=== PATIENT | male | born 1940 | race Caucasian/White ===

== ENCOUNTER 2018-01-15 16:29 | Emergency (ER) | payer MEDICARE, OTHER ==
[~2018-01-15] VITALS: Ht 162.6 cm; Wt 81.0 kg
[~2018-01-15 16:29] MED LIST: GABA-530 PO; VALA10002 PO
[2018-01-15 17:54] VITALS: BP 180/101
== END 2018-01-15 17:09 | disposition home or self-care (01) ==
LOC: ER 16:29
DX: J22 Unspecified acute lower respiratory infection (principal); J20.9 Acute bronchitis, unspecified; I10 Essential (primary) hypertension
CPT/HCPCS: 99281